=== PATIENT | female | born 1975 | race Caucasian/White ===

== ENCOUNTER 2022-05-30 07:00 | Outpatient (NON) | payer OTHER, SELFPAY | END 2022-05-30 07:01 | disposition home or self-care (01) | PROVIDERS: PCP Internal Medicine; Visit Provider Nurse Practitioner | DX: L82.1 Other seborrheic keratosis (principal) | CPT/HCPCS: 88305 ==

== ENCOUNTER 2022-06-22 08:00 | Outpatient (NON) | payer OTHER, SELFPAY | END 2022-06-22 08:01 | disposition home or self-care (01) | PROVIDERS: PCP Internal Medicine; Visit Provider Nurse Practitioner | DX: D49.2 Neoplasm of unspecified behavior of bone, soft tissue, and skin (principal) | CPT/HCPCS: 88305 ==

== ENCOUNTER → 2023-08-27 14:30 | Outpatient (CLI) | payer OTHER, SELFPAY ==
--- NOTE | ~2023-08-27 | XR_ITS ---
EXAMINATION:[id number] DATE: 08/27/2023 14:57 INDICATION: Right-sided neck pain TECHNIQUE: AP, lateral, and odontoid views of the cervical spine are provided. COMPARISON: None FINDINGS: There is straightening of the cervical spine which can be positional or due to muscular spa sm. There are 2 mm of retrolisthesis of C5 on C6. The odontoid process is intact. No fracture is iden tified. The vertebral body heights are maintained. There is moderate loss of intervertebral disc spac e height at C5-6. Small degenerative osteophytes project from the anterior endplates of C5-6 and C6-7 . There is mild facet and uncovertebral joint osteoarthritis at C5-C6 and C6-7. Prevertebral soft tis sues are normal. IMPRESSION: 1. Mild cervical spondylosis without acute findings. Reviewed, dictated and finalized at location L. [employer] ATTEND[employer]
== END ==
PROVIDERS: PCP Chiropractor; Visit Provider Chiropractor
DX: M47.892 Other spondylosis, cervical region (principal)
CPT/HCPCS: 72040

== ENCOUNTER 2023-11-21 13:12 | Outpatient (CLI) | payer OTHER, SELFPAY ==
--- NOTE | ~2023-11-21 | MR_ITS ---
EXAMINATION: MR abdomen wo/w con DATE: 11/21/2023 14:29 INDICATION: Liver mass. TECHNIQUE: Magnetic resonance imaging (MRI) of the abdomen was performed without and with 11 mL Multi Niko intravenous contrast. COMPARISON: None. FINDINGS: There is a 13 mm mass in right hepatic lobe with interrupted peripheral puddling of contrast, consist ent with a hemangioma. The spleen, gallbladder, pancreas, adrenal glands, and right kidney are normal . There is an 8 mm cyst in left kidney. There are no dilated loops of bowel. IMPRESSION: 1. 13 mm hemangioma in the liver. Reviewed, dictated and finalized at location A.
== END 2023-11-21 13:13 ==
DX: K76.89 Other specified diseases of liver (principal)
CPT/HCPCS: 74183; A9577